=== PATIENT | male | born 1950 | race Caucasian/White ===

== ENCOUNTER 2018-08-16 13:18 | Inpatient (IN) | payer MEDICARE ==
[2018-08-16] MEDS ORDERED: IPRATROPIUM/ALBUTEROL 0.5-2.5 MG/3 ML AMPUL NEB ONE (15:03)
[2018-08-16] MEDS ORDERED: NORMAL SALINE 1000 ML 1,000 ML IV ONE ×2 (15:03→19:49)
--- NOTE | 2018-08-16 15:03 | ER Document Report ---
ED Medical Screen (RME) - General Chief Complaint: Abdominal Pain Stated Complaint: ABDOMINAL PAIN Time Seen by Provider: 08/16/18 14:52 TRAVEL OUTSIDE OF THE [place] IN LAST 30 DAYS: No - Related Data Allergies/Adverse Reactions: No Known Allergies Allergy (Verified 08/16/18 15:02) Past Medical History - Social History Chew tobacco use (# tins/day): No Frequency of alcohol use: None Drug Abuse: None Renal/ Medical History: Denies: Hx Peritoneal Dialysis Physical Exam - Vital signs Vitals: Temp Pulse Resp BP Pulse Ox 98.4 F 118 H 24 H 139/98 H 96 08/16/18 13:44 08/16/18 13:44 08/16/18 13:44 08/16/18 13:44 08/16/18 13:44 Course - Re-evaluation Re-evalutation: 08/16/18 15:02 Cough followed by worsening abdominal pain today seen in urgent care yesterday. I have seen and evaluated this patient, they have undergone a rapid medical screening examination, they will require reevaluation further examination potential further diagnostics and disposition determination by secondary provider. - Vital Signs Vital signs: Temp Pulse Resp BP Pulse Ox 98.4 F 118 H 22 H 151/97 H 95 08/16/18 13:44 08/16/18 13:44 08/16/18 19:01 08/16/18 19:01 08/16/18 19:01 - Laboratory Result Diagrams: 08/16/18 15:56 08/16/18 15:56 Laboratory results interpreted by me: 08/16/18 15:56 BUN 22 H Creatine Kinase 252 H
[2018-08-16 16:07] LABS: ABSOLUTE LYMPHOCYTES (AUTO) 1.8 10^3/uL (0.5-4.7); ABSOLUTE NEUT (AUTO) 7.6 10^3/uL (1.7-8.2); BASOPHILS % (AUTO) 0.1 % (0-2); EOSINOPHILS % (AUTO) 0.2 % (0-6); HEMATOCRIT 44.4 % (37.9-51.0); HEMOGLOBIN 15.4 g/dL (13.5-17.0); LYMPHOCYTES % (AUTO) 17.5 % (13-45); MEAN CORPUSCULAR HEMOGLOBIN 30.2 pg (27.0-33.4); MEAN CORPUSCULAR HGB CONC 34.6 g/dL (32.0-36.0); MEAN CORPUSCULAR VOLUME 87 fl (80-97); MONOCYTES % (AUTO) 9.5 % (3-13); PLATELET COUNT 261 10^3/uL (150-450); RED CELL DISTRIBUTION WIDTH 13.9 % (11.5-14.0); SEGMENTED NEUTROPHILS % (AUTO) 72.7 % (42-78); TOTAL CELLS COUNTED % (AUTO) 100 %; WHITE BLOOD COUNT 10.5 10^3/uL (4.0-10.5)
[2018-08-16 16:23] LABS: ALANINE AMINOTRANSFERASE 23 U/L (21-72); ALBUMIN 4.5 g/dL (3.5-5.0); ALKALINE PHOSPHATASE 60 U/L (38-126); ANION GAP 10 (5-19); ASPARTATE AMINO TRANSFERASE 29 U/L (17-59); BILIRUBIN,DIRECT 0.2 mg/dL (0.0-0.4); BILIRUBIN,TOTAL 0.6 mg/dL (0.2-1.3); BLOOD UREA NITROGEN 22 mg/dL (7-20); CALCIUM 9.4 mg/dL (8.4-10.2); CARBON DIOXIDE 26 mmol/L (22-30); CHLORIDE 103 mmol/L (98-107); CREATINE KINASE 252 U/L (55-170); GLUCOSE 105 mg/dL (75-110); POTASSIUM 4.5 mmol/L (3.6-5.0); SODIUM 139.4 mmol/L (137-145); TOTAL PROTEIN 7.5 g/dL (6.3-8.2)
--- NOTE | 2018-08-16 16:26 | RADIOLOGY REPORT (SQ) ---
EXAM DESCRIPTION: CHEST 2 VIEWS COMPLETED DATE/TIME: 08/16/2018 3:58 pm REASON FOR STUDY: cough COMPARISON: None. EXAM PARAMETERS: NUMBER OF VIEWS: two views TECHNIQUE: Digital Frontal and Lateral radiographic views of the chest acquired. RADIATION DOSE: NA LIMITATIONS: none FINDINGS: LUNGS AND PLEURA: Ill-defined opacification in the right base the hand anteriorly on the l ateral view. MEDIASTINUM AND HILAR STRUCTURES: No masses or contour abnormalities. HEART AND VASCULAR STRUCTURES: Heart normal size. No evidence for failure. BONES: No acute findings. HARDWARE: Loop recorder. OTHER: No other significant finding. IMPRESSION: Limited right middle lobe pneumonia. TECHNICAL DOCUMENTATION: JOB ID: [id number] [email or web address]- All Rights Reserved Reading location - IP/workstation name: [email or web address]
[2018-08-16] MEDS ORDERED: KETOROLAC TROMETHAMINE INJ/PF 30 MG/1 ML SDV IV ONE (19:04)
[2018-08-16] MEDS ORDERED: AMOXICILLIN TRIHYDRATE 500 MG CAPSULE PO ONE (19:05)
[2018-08-16] MEDS ORDERED: LIDOCAINE 5% (700 MG) TRANSDERMAL ADH..PATCH TP ONE (19:05)
[2018-08-16] MEDS ORDERED: ACETAMINOPHEN 325 MG TABLET PO ONE (19:05)
--- NOTE | 2018-08-16 19:10 | ER Document Report ---
ED General - General Chief Complaint: Abdominal Pain Stated Complaint: ABDOMINAL PAIN Time Seen by Provider: 08/16/18 14:52 Notes: Patient is a 68-year-old male with a past medical history of atrial flutter, hypertension presents with 1 week of a persistent cough from 2 days of severe, stabbing, aching pain to his bilateral lower rib spaces and upper abdomen. States the pain is triggered by coughing or moving. Eases off when he is not doing either of these activities. Was seen in urgent care yesterday, chest x- ray was noted to be clear at that time he was diagnosed with a bronchitis. He was started on azithromycin, cough medication mother which he reports have been provided any relief. Denies a history of similar symptoms in the past. No history of COPD or asthma. He is not a smoker. He has not had a fever at home. TRAVEL OUTSIDE OF THE [place] IN LAST 30 DAYS: No - Related Data Allergies/Adverse Reactions: No Known Allergies Allergy (Verified 08/16/18 15:02) Past Medical History - General Information source: Patient - Social History Smoking Status: Former Smoker Chew tobacco use (# tins/day): No Frequency of alcohol use: None Drug Abuse: None Lives with: Spouse/Significant other Family History: Reviewed & Not Pertinent Patient has suicidal ideation: No Patient has homicidal ideation: No - Past Medical History Cardiac Medical History: Reports: Hx Heart Attack, Hx Hypercholesterolemia, Hx Hypertension Renal/ Medical History: Denies: Hx Peritoneal Dialysis Past Surgical History: Reports: Hx Cardiac Catheterization - stent x1, Hx Orthopedic Surgery Review of Systems - Review of Systems Notes: Constitutional: Negative for fever. HENT: Negative for sore throat. Eyes: Negative for visual changes. Cardiovascular: Negative for chest pain. Respiratory: Positive for cough and shortness of breath Gastrointestinal: Positive for upper abdominal pain Genitourinary: Negative for dysuria. Musculoskeletal: Positive for bilateral lower rib pain Skin: Negative for rash. Neurological: Negative for headaches, weakness or numbness. 10 point ROS negative except as marked above and in HPI. Physical Exam - Vital signs Vitals: Temp Pulse Resp BP Pulse Ox 98.4 F 118 H 24 H 139/98 H 96 08/16/18 13:44 08/16/18 13:44 08/16/18 13:44 08/16/18 13:44 08/16/18 13:44 Interpretation: Tachycardic, Tachypneic Notes: PHYSICAL EXAMINATION: GENERAL: Appears uncomfortable but in no acute distress HEAD: Atraumatic, normocephalic. EYES: Pupils equal round and reactive to light, extraocular movements intact, sclera anicteric, conjunctiva are normal. ENT: nares patent, oropharynx clear without exudates. Mild dry mucous membranes. NECK: Normal range of motion, supple without lymphadenopathy LUNGS: Breath sounds clear to auscultation bilaterally and equal. No wheezes rales or rhonchi. HEART: Regular tachycardia without murmurs ABDOMEN: Soft, nontender, normoactive bowel sounds. No guarding, no rebound. No masses appreciated. EXTREMITIES: Normal range of motion, no pitting or edema. No cyanosis. NEUROLOGICAL: No focal neurological deficits. Moves all extremities spontaneously and on command. PSYCH: Normal mood, normal affect. SKIN: Warm, Dry, normal turgor, no rashes or lesions noted. Course - Re-evaluation Re-evalutation: 08/16/18 19:06 Patient presents with 1 week of persistent coughing, mild shortness of breath and diffuse upper abdominal pain with coughing. The patient states that the pain in his upper abdomen is mild unless he coughs or moves and is most severe over his lower rib cages bilaterally had epigastric region. Patient is ready on azithromycin that was started yesterday for a bronchitis. His chest x-ray does show a right middle lobe pneumonia. Azithromycin does not adequately cover for community acquired pneumonia. The patient has also been treated with ketorolac, morphine and acetaminophen with improvement of what appears to be musculoskeletal lower rib and upper abdominal pain. His abdominal exam itself is extremely benign without any areas of focal tenderness, rebound or guarding. The patient did initially have mild tachycardia which was noted to be dramatically worsened after he began having spasms of pain with coughing. Will monitor to see if his tachycardia and hypertension improve after receiving pain control. If these measures do not improve and he remained persistently tachycardic will require hospitalization. 08/16/18 20:42 Patient's tachycardia has not improved despite improvement in pain control and receiving his home dose of metoprolol tartrate 25 mg p.o. Current heart rate is still 121. I therefore have discussed with Dr. Servin and he has accepted the patient for admission. He has been started on levofloxacin. - Vital Signs Vital signs: Temp Pulse Resp BP Pulse Ox 98.3 F 116 H 18 152/82 H 96 08/17/18 03:18 08/17/18 03:18 08/17/18 03:18 08/17/18 03:18 08/17/18 03:18 - Laboratory Result Diagrams: 08/16/18 15:56 08/16/18 15:56 Laboratory results interpreted by me: 08/16/18 15:56 BUN 22 H Creatine Kinase 252 H - Diagnostic Test Radiology reviewed: Image reviewed, Reports reviewed Radiology results interpreted by me: 08/16/18 19:09 Chest x-ray: Right middle lobe pneumonia - EKG Interpretation by Me Additional EKG results interpreted by me: 08/16/18 19:09 Atrial flutter, rate 98. No ST elevations or depressions. QTC is 445. Discharge - Discharge Clinical Impression: Tachycardia, Painful rib Right middle lobe pneumonia Qualifiers: Pneumonia type: due to unspecified organism Qualified Code(s): J18.1 - Lobar pneumonia, unspecified organism Atrial flutter Qualifiers: Atrial flutter type: typical Qualified Code(s): I48.3 - Typical atrial flutter Condition: Fair Disposition: ADMITTED INPATIENT Admitting Provider: Hospitalist Unit Admitted: Telemetry
[2018-08-16] MEDS: MORPHINE SULFATE 10 MG/ML INJ IV PRN (19:45)
[2018-08-16] MEDS ORDERED: METOPROLOL TARTRATE 25 MG TABLET PO ONE (19:59)
[2018-08-16] MEDS ORDERED: LEVALBUTEROL HCL NEB 1.25 MG/3 ML AMPUL NEB PRN (20:47)
[2018-08-16] MEDS ORDERED: IPRATROPIUM BROMIDE 0.02% NEB 0.5 MG/2.5 ML AMPUL NEB PRN (20:47)
[2018-08-16] MEDS: LEVALBUTEROL HCL NEB 1.25 MG/3 ML AMPUL NEB SCH (21:13)
[2018-08-16] MEDS: HEPARIN SOD (PORCINE) 5,000 UNIT/ML 1 ML SYRINGE SUBCUT SCH (21:13)
[2018-08-16] MEDS ORDERED: METOPROLOL TARTRATE PF/INJ 5 MG/5 ML SDV IV ONE (21:30)
--- NOTE | 2018-08-16 22:52 | EKG REPORT ---
SEVERITY:- ABNORMAL ECG - ATRIAL FLUTTER, A-RATE 238 NONSPECIFIC T ABNORMALITIES, ANTERIOR LEADS : Confirmed by: Adelina Clarke MD 16-Aug-2018 22:51:51
[2018-08-17] MEDS: GUAIFENESIN SYRP 200 MG/10 ML UDC PO PRN ×2 (00:43→09:35)
[2018-08-17] MEDS: MORPHINE SULFATE 10 MG/ML INJ IV PRN ×4 (00:57→09:33)
[2018-08-17] MEDS ORDERED: LEVOFLOXACIN 750 MG/D5W RTU 750 MG/150 ML RTUPB IV ONE (01:00)
[2018-08-17] MEDS: LEVALBUTEROL HCL NEB 1.25 MG/3 ML AMPUL NEB SCH ×4 (02:25→19:50)
[2018-08-17] MEDS: IPRATROPIUM BROMIDE 0.02% NEB 0.5 MG/2.5 ML AMPUL NEB SCH ×4 (02:26→19:50)
[2018-08-17] MEDS: METOPROLOL TARTRATE PF/INJ 5 MG/5 ML SDV IV PRN ×2 (04:05→22:48)
--- NOTE | 2018-08-17 05:10 | PDOC H&P ---
History of Present Illness Admission Date/PCP: 08/16/18 21:44 Patient complains of: Shortness of breath and cough History of Present Illness: MADDY CAMPA is a 68 year old male with a past medical history of atrial flutter, mitral valve replacement and hypertension. He presents with 2 days of sharp stabbing right-sided pain preceded by rhinorrhea and postnasal drip prompting him to seek evaluation at urgent care he was diagnosed with bronchitis and placed on azithromycin. He has had no significant improvement prompting evaluation in the emergency room where he is found to be in atrial flutter with uncontrolled rate, rhonchorous with leukocytosis and a right middle lobe infiltrate. He is diagnosed with pneumonia, started on empiric antibiotics and referred to the hospitalist for admission. Patient denies recent hospitalization, antibiotic use or infectious contacts. Past Medical History Cardiac Medical History: Reports: Myocardial Infarction, Hyperlipidema, Hypertension Past Surgical History Past Surgical History: Reports: Cardiac Catheterization - stent x1, Orthopedic Surgery Social History Information Source: Patient, [facility] Records Lives with: Spouse/Significant other Smoking Status: Former Smoker Frequency of Alcohol Use: Heavy Drugs: None - Advance Directive Resuscitation Status: Full Code Family History Family History: Hypertension Parental Family History Reviewed: Yes Children Family History Reviewed: Yes Sibling(s) Family History Reviewed.: Yes Medication/Allergy Allergies/Adverse Reactions: No Known Allergies Allergy (Verified 08/16/18 15:02) Review of Systems Constitutional: ABSENT: chills, fever(s), headache(s), weight gain, weight loss Eyes: ABSENT: visual disturbances Ears: ABSENT: hearing changes Cardiovascular: ABSENT: chest pain, dyspnea on exertion, edema, orthropnea, palpitations Respiratory: ABSENT: cough, hemoptysis Gastrointestinal: ABSENT: abdominal pain, constipation, diarrhea, hematemesis, hematochezia, nausea, vomiting Genitourinary: ABSENT: dysuria, hematuria Musculoskeletal: ABSENT: joint swelling Integumentary: ABSENT: rash, wounds Neurological: ABSENT: abnormal gait, abnormal speech, confusion, dizziness, focal weakness, syncope Psychiatric: ABSENT: anxiety, depression, homidical ideation, suicidal ideation Endocrine: ABSENT: cold intolerance, heat intolerance, polydipsia, polyuria Hematologic/Lymphatic: ABSENT: easy bleeding, easy bruising Physical Exam Vital Signs: Temp Pulse Resp BP Pulse Ox 98.3 F 116 H 18 152/82 H 96 08/17/18 03:18 08/17/18 03:18 08/17/18 03:18 08/17/18 03:18 08/17/18 03:18 Intake & Output 08/15/18 08/16/18 08/17/18 11:59 11:59 11:59 Intake Total 2150 Balance 2150 Weight 102.2 kg General appearance: PRESENT: cooperative, mild distress. ABSENT: disheveled Head exam: PRESENT: atraumatic, normocephalic Eye exam: PRESENT: conjunctiva pink, EOMI, PERRLA. ABSENT: scleral icterus Ear exam: PRESENT: normal external ear exam Mouth exam: PRESENT: moist, tongue midline Neck exam: ABSENT: carotid bruit, JVD, lymphadenopathy, thyromegaly Respiratory exam: PRESENT: accessory muscle use, crackles, decreased breath sounds, retraction, rhonchi, symmetrical, tachypnea Cardiovascular exam: PRESENT: RRR, +S1, +S2, tachycardia. ABSENT: diastolic murmur, rubs, systolic murmur Pulses: PRESENT: normal dorsalis pedis pul Vascular exam: PRESENT: normal capillary refill GI/Abdominal exam: PRESENT: normal bowel sounds, soft. ABSENT: distended, guarding, mass, organolmegaly, rebound, tenderness Rectal exam: PRESENT: deferred Extremities exam: PRESENT: full ROM. ABSENT: calf tenderness, clubbing, pedal edema Neurological exam: PRESENT: alert, awake, oriented to person, oriented to place, oriented to time, oriented to situation, CN II-XII grossly intact. ABSENT: motor sensory deficit Psychiatric exam: PRESENT: appropriate affect, normal mood. ABSENT: homicidal ideation, suicidal ideation Skin exam: PRESENT: dry, intact, warm. ABSENT: cyanosis, rash Results Laboratory Results: 08/16/18 15:56 08/16/18 15:56 08/16/18 08/16/18 15:56 15:56 WBC 10.5 RBC 5.10 Hgb 15.4 Hct 44.4 MCV 87 MCH 30.2 MCHC 34.6 RDW 13.9 Plt Count 261 Seg Neutrophils % 72.7 Lymphocytes % 17.5 Monocytes % 9.5 Eosinophils % 0.2 Basophils % 0.1 Absolute Neutrophils 7.6 Absolute Lymphocytes 1.8 Absolute Monocytes 1.0 Absolute Eosinophils 0.0 Absolute Basophils 0.0 Sodium 139.4 Potassium 4.5 Chloride 103 Carbon Dioxide 26 Anion Gap 10 BUN 22 H Creatinine 0.87 Est GFR ( Amer) > 60 Est GFR (Non-Af Amer) > 60 Glucose 105 Calcium 9.4 Total Bilirubin 0.6 AST 29 ALT 23 Alkaline Phosphatase 60 Total Protein 7.5 Albumin 4.5 08/16/18 08/16/18 15:56 15:56 Creatine Kinase 252 H Troponin I < 0.012 Impressions: Chest X-Ray 08/16/18 15:02 IMPRESSION: Limited right middle lobe pneumonia. Assessment & Plan - Diagnosis (1) Right middle lobe pneumonia Qualifiers: Pneumonia type: due to unspecified organism Qualified Code(s): J18.1 - Lobar pneumonia, unspecified organism Is this a current diagnosis for this admission?: Yes Plan: Maxillary sinusitis evolving to right middle lobe pneumonia, failed outpatient azithromycin, Levaquin initiated. Follow-up CBC and blood culture, Xopenex and ipratropium (2) Pleuritic chest pain Is this a current diagnosis for this admission?: Yes Plan: Secondary to #1, symptomatic management with incentive spirometry (3) Atrial flutter Qualifiers: Atrial flutter type: typical Qualified Code(s): I48.3 - Typical atrial flutter Is this a current diagnosis for this admission?: Yes Plan: Outpatient regiment with IV Lopressor as needed (4) Tachycardia Is this a current diagnosis for this admission?: Yes Plan: Secondary to a flutter, avoid albuterol, Xopenex ordered. As needed Lopressor IV - Time Time Spent: 50 to 70 Minutes - Inpatient Certification Medical Necessity: Need Close Monitoring Due to Risk of Patient Decompensation
[2018-08-17 05:43] LABS: ABSOLUTE LYMPHOCYTES (AUTO) 2.3 10^3/uL (0.5-4.7); ABSOLUTE MONOCYTES (AUTO) 0.8 10^3/uL (0.1-1.4); ABSOLUTE NEUT (AUTO) 3.7 10^3/uL (1.7-8.2); BASOPHILS % (AUTO) 0.3 % (0-2); EOSINOPHILS % (AUTO) 0.2 % (0-6); HEMATOCRIT 38.8 % (37.9-51.0); LYMPHOCYTES % (AUTO) 33.4 % (13-45); MEAN CORPUSCULAR HEMOGLOBIN 30.2 pg (27.0-33.4); MEAN CORPUSCULAR HGB CONC 34.3 g/dL (32.0-36.0); MEAN CORPUSCULAR VOLUME 88 fl (80-97); MONOCYTES % (AUTO) 12.1 % (3-13); PLATELET COUNT 197 10^3/uL (150-450); RED BLOOD COUNT 4.41 10^6/uL (4.35-5.55); RED CELL DISTRIBUTION WIDTH 13.5 % (11.5-14.0); TOTAL CELLS COUNTED % (AUTO) 100 %; WHITE BLOOD COUNT 6.9 10^3/uL (4.0-10.5)
[2018-08-17 06:09] LABS: ANION GAP 8 (5-19); BLOOD UREA NITROGEN 23 mg/dL (7-20); CALCIUM 8.6 mg/dL (8.4-10.2); CARBON DIOXIDE 23 mmol/L (22-30); CHLORIDE 108 mmol/L (98-107); GLUCOSE 96 mg/dL (75-110); POTASSIUM 5.1 mmol/L (3.6-5.0); SODIUM 139.3 mmol/L (137-145)
[2018-08-17] MEDS: HEPARIN SOD (PORCINE) 5,000 UNIT/ML 1 ML SYRINGE SUBCUT SCH ×2 (06:29→14:36)
[2018-08-17 06:58] LABS: HEMOGLOBIN 13.3 g/dL (13.5-17.0)
[2018-08-17] MEDS ORDERED: METOPROLOL TARTRATE 25 MG TABLET ONE ×2 (08:47→22:42)
[2018-08-17] MEDS ORDERED: METOPROLOL TARTRATE 25 MG TABLET PO SCH ×2 (10:00→17:30)
[2018-08-17] MEDS ORDERED: LEVOFLOXACIN 750 MG/D5W RTU 750 MG/150 ML RTUPB IV SCH ×2 (10:00→22:00)
[2018-08-17] MEDS ORDERED: MORPHINE SULFATE 10 MG/ML INJ IV PRN (11:36)
[2018-08-17] MEDS: ACETAMINOPHEN 325 MG TABLET PO PRN ×2 (12:06→21:12)
[2018-08-17] MEDS ORDERED: DILTIAZEM HCL 60 MG TABLET PO ONE (12:30)
[2018-08-17] MEDS: RIVAROXABAN 10 MG TABLET PO SCH (15:27)
--- NOTE | 2018-08-17 17:04 | PDOC PROGRESS REPORT ---
Subjective Progress Note for:: 08/17/18 Subjective:: This is a 68 yr old male with a PMH of atrial flutter on Xarelto, history of CAD-with prior stenting, mitral valve replacement and hypertension who presented with respiratory complaints and was found to have right middle lobe pneumonia. He was also noted to be in Aflutter with RVR. No acute event overnight. However, his heart continues to run in the 120s on 25 mg of Lopressor. This morning, he says he feel better and his breathing feels better. He denies chest pain or dizziness. Reason For Visit: PNEUOMONIA Physical Exam Vital Signs: Temp Pulse Resp BP Pulse Ox 97.8 F 116 H 18 126/88 H 95 08/17/18 13:00 08/17/18 14:00 08/17/18 14:00 08/17/18 13:00 08/17/18 14:00 Intake & Output 08/16/18 08/17/18 08/18/18 06:59 06:59 06:59 Intake Total 2150 Balance 2150 Weight 225 lb 4.999 oz General appearance: PRESENT: no acute distress, well-developed, well-nourished Head exam: PRESENT: atraumatic, normocephalic Eye exam: PRESENT: conjunctiva pink, EOMI, PERRLA. ABSENT: scleral icterus Ear exam: PRESENT: normal external ear exam Mouth exam: PRESENT: moist, tongue midline Neck exam: ABSENT: carotid bruit, JVD, lymphadenopathy, thyromegaly Respiratory exam: PRESENT: rales - on the right base, rhonchi. ABSENT: wheezes Rectal exam: PRESENT: deferred Neurological exam: PRESENT: alert, awake, oriented to person, oriented to place, oriented to time, oriented to situation, CN II-XII grossly intact. ABSENT: motor sensory deficit Results Laboratory Results: 08/17/18 05:02 08/17/18 05:02 08/17/18 08/17/18 05:02 05:02 WBC 6.9 RBC 4.41 Hgb 13.3 L D Hct 38.8 MCV 88 MCH 30.2 MCHC 34.3 RDW 13.5 Plt Count 197 Seg Neutrophils % 54.0 Lymphocytes % 33.4 Monocytes % 12.1 Eosinophils % 0.2 Basophils % 0.3 Absolute Neutrophils 3.7 Absolute Lymphocytes 2.3 Absolute Monocytes 0.8 Absolute Eosinophils 0.0 Absolute Basophils 0.0 Sodium 139.3 Potassium 5.1 H Chloride 108 H Carbon Dioxide 23 Anion Gap 8 BUN 23 H Creatinine 0.83 Est GFR ( Amer) > 60 Est GFR (Non-Af Amer) > 60 Glucose 96 Calcium 8.6 08/16/18 08/16/18 15:56 15:56 Creatine Kinase 252 H Troponin I < 0.012 Impressions: Chest X-Ray 08/16/18 15:02 IMPRESSION: Limited right middle lobe pneumonia. Assessment & Plan - Diagnosis (1) Right middle lobe pneumonia Qualifiers: Pneumonia type: due to unspecified organism Qualified Code(s): J18.1 - Lobar pneumonia, unspecified organism Is this a current diagnosis for this admission?: Yes Plan: Continue levofloxacin. Sputum culture ordered. (2) Atrial flutter Qualifiers: Atrial flutter type: typical Qualified Code(s): I48.3 - Typical atrial flutter Is this a current diagnosis for this admission?: Yes Plan: Xarelto resumed. He was given one dose oral cardizem and HR improved down to 90. Will increase lopressor to 50 mg bid. (3) CAD (coronary artery disease) Is this a current diagnosis for this admission?: Yes Plan: Stable. Resume aspirin and statin. - Time Time Spent with patient: 25-34 minutes
[2018-08-17] MEDS ORDERED: ASPIRIN 81 MG TABLET, ENT COATED PO ONE (18:00)
[2018-08-17] MEDS ORDERED: ATORVASTATIN CALCIUM 20 MG TABLET PO SCH (22:00)
[2018-08-17] MEDS ORDERED: METOPROLOL TARTRATE 25 MG TABLET PO ONE ×2 (22:00→23:30)
[2018-08-18] MEDS: ACETAMINOPHEN 325 MG TABLET PO PRN ×2 (01:23→09:09)
[2018-08-18] MEDS: IPRATROPIUM BROMIDE 0.02% NEB 0.5 MG/2.5 ML AMPUL NEB SCH ×2 (01:56→08:42)
[2018-08-18] MEDS: LEVALBUTEROL HCL NEB 1.25 MG/3 ML AMPUL NEB SCH ×2 (01:56→08:42)
[2018-08-18] MEDS: RIVAROXABAN 10 MG TABLET PO SCH (09:10)
[2018-08-18] MEDS ORDERED: LISINOPRIL 10 MG TABLET PO SCH (10:00)
[2018-08-18] MEDS ORDERED: ASPIRIN 81 MG TABLET, ENT COATED PO SCH (10:00)
[2018-08-18] MEDS ORDERED: METOPROLOL TARTRATE 50 MG TABLET PO SCH (10:00)
[2018-08-18] MEDS ORDERED: DOCUSATE SODIUM 100 MG CAPSULE PO SCH (11:00)
[2018-08-18 13:17] VITALS: BP 126/88
--- NOTE | 2018-08-22 16:54 | PDOC DISCHARGE SUMMARY ---
General - Admit/Disc Date/PCP Admission Date/Primary Care Provider: 08/16/18 21:44 Discharge Date: 08/18/18 - Discharge Diagnosis (1) Right middle lobe pneumonia Is this a current diagnosis for this admission?: Yes (2) Atrial flutter Is this a current diagnosis for this admission?: Yes (3) CAD (coronary artery disease) Is this a current diagnosis for this admission?: Yes - Additional Information Resuscitation Status: Full Code Discharge Activity: Activity As Tolerated, Balance Activity w/Rest, Slowly Increase Activity Prescriptions: Levofloxacin [Levaquin 750 mg Tablet] 750 mg PO DAILY #5 tab Metoprolol Tartrate [Lopressor 50 mg Tablet] 50 mg PO Q12 #60 tablet Home Medications: Aspirin [Adult Aspirin] 81 mg PO DAILY 08/17/18 Atorvastatin Calcium [Lipitor 20 mg Tablet] 20 mg PO QHS 08/17/18 Lisinopril [Prinivil] 10 mg PO DAILY 08/17/18 Multivitamin [Daily Multiple Vitamin] 1 each PO DAILY 08/17/18 [place]-3 Fatty Acids/Fish Oil [[place] 3 Fish Oil Softgel] 1 each PO DAILY 08/17/18 Rivaroxaban [Xarelto] 20 mg PO DAILY 08/17/18 Levofloxacin [Levaquin 750 mg Tablet] 750 mg PO DAILY #5 tab 08/18/18 Metoprolol Tartrate [Lopressor 50 mg Tablet] 50 mg PO Q12 #60 tablet 08/18/18 History of Present Illness History of Present Illness: Admitting hospitalist's H&P: MADDY CAMPA is a 68 year old male with a past medical history of atrial flutter, mitral valve replacement and hypertension. He presents with 2 days of sharp sta bbing right-sided pain preceded by rhinorrhea and postnasal drip prompting him to seek evaluation at urgent care he was diagnosed with bronchitis and placed on azithromycin. He has had no significant improvement prompting evaluation in the emergency room where he is found to be in atrial flutter with uncontrolled rate, rhonchorous with leukocytosis and a right middle lobe infiltrate. He is diagn osed with pneumonia, started on empiric antibiotics and referred to the hospitalist for admission. Patient denies recent hospitalization, antibiotic use or infectious contacts. Hospital Course Hospital Course: This is a 68 yr old male who recently moved here in [place] with a PMH of atrial flutter on Xarelto, history of CAD-with prior stenting, mitral valve annuloplasty (has a Petar ring) and hypertension who presented with respiratory complaints and was found to have right middle lobe pneumonia. He was also noted to be in Aflutter with RVR. He was started on antibiotics. He had significant improvement and was back to his baseline on day of discharge. His lopressor was increased and his heart rate improved down to the 80s. He was given Dr. Cerda's number to ff-up with his Aflutter. He will be given 5 more days of Levaquin. Physical Exam Vital Signs: Temp Pulse Resp BP Pulse Ox 98.5 F 94 17 126/88 H 97 08/18/18 13:12 08/18/18 13:12 08/18/18 13:12 08/18/18 13:12 08/18/18 13:12 Intake & Output 08/17/18 08/18/18 08/19/18 06:59 06:59 06:59 Intake Total 2150 1116 Balance 2150 1116 Weight 225 lb 4.999 oz 230 lb 9.656 oz General appearance: PRESENT: no acute distress, well-developed, well-nourished Head exam: PRESENT: atraumatic, normocephalic Eye exam: PRESENT: conjunctiva pink, EOMI, PERRLA. ABSENT: scleral icterus Ear exam: PRESENT: normal external ear exam Mouth exam: PRESENT: moist, tongue midline Neck exam: ABSENT: carotid bruit, JVD, lymphadenopathy, thyromegaly Respiratory exam: PRESENT: rhonchi. ABSENT: rales, wheezes Cardiovascular exam: PRESENT: irregular rhythm, systolic murmur. ABSENT: rubs Pulses: PRESENT: normal dorsalis pedis pul GI/Abdominal exam: PRESENT: normal bowel sounds, soft. ABSENT: distended, guarding, mass, organolmegaly, rebound, tenderness Rectal exam: PRESENT: deferred Extremities exam: PRESENT: full ROM. ABSENT: calf tenderness, clubbing, pedal edema Neurological exam: PRESENT: alert, awake, oriented to person, oriented to place, oriented to time, oriented to situation, CN II-XII grossly intact. ABSENT: motor sensory deficit Results Laboratory Results: 08/17/18 05:02 08/17/18 05:02 08/17/18 20:30 Sputum Gram Stain - Final 08/17/18 20:30 Sputum Sputum Culture - Final 08/16/18 08/16/18 15:56 15:56 Creatine Kinase 252 H Troponin I < 0.012 Impressions: Chest X-Ray 08/16/18 15:02 IMPRESSION: Limited right middle lobe pneumonia. Qualifiers - * PATIENT BEING DISCHARGED WITH ANY OF THE FOLLOWING DIAGNOSIS: No
== END 2018-08-18 14:54 | disposition home or self-care (01) | DRG 194 ==
LOC: ER 13:18 → EH 21:44 → 4S 23:35
PROVIDERS: ADMIT Internal Medicine; ATTEND Internal Medicine
DX: J18.1 Lobar pneumonia, unspecified organism (principal); I48.3 Typical atrial flutter; I10 Essential (primary) hypertension; E78.5 Hyperlipidemia, unspecified; J32.0 Chronic maxillary sinusitis; I25.10 Atherosclerotic heart disease of native coronary artery without angina pectoris; I25.2 Old myocardial infarction; Z79.01 Long term (current) use of anticoagulants; Z79.82 Long term (current) use of aspirin; Z79.52 Long term (current) use of systemic steroids; Z79.899 Other long term (current) drug therapy; Z87.891 Personal history of nicotine dependence
CPT/HCPCS: 36415; 71046; 80048; 80053; 82550; 84484; 85025; 87070; 87205; 93005; 93010; 94640; 94799; 96361; 96372; 96374; 96375; 99285; J1644; J1885; J1956; J2270; J3490; J7030; J7620

== ENCOUNTER → 2018-09-03 | Outpatient (CLI) | payer MEDICARE ==
--- NOTE | 2018-09-03 10:26 | RADIOLOGY REPORT (SQ) ---
EXAM DESCRIPTION: Or/19 CHEST 2 VIEWS COMPLETED DATE/TIME: 09/03/2018 10:09 am REASON FOR STUDY: PNEUMONIA COMPARISON: 08/16/2018 EXAM PARAMETERS: NUMBER OF VIEWS: two views TECHNIQUE: Digital Frontal and Lateral radiographic views of the chest acquired. RADIATION DOSE: NA LIMITATIONS: none FINDINGS: LUNGS AND PLEURA: Improved right middle lobe aeration with minimal residual streaky opacit ies. Small residual right pleural effusion. Unremarkable left hemithorax. No pneumothorax. MEDIASTINUM AND HILAR STRUCTURES: No masses or contour abnormalities. HEART AND VASCULAR STRUCTURES: Normal cardiac silhouette size. Atherosclerotic aorta. BONES: No acute findings. HARDWARE: Partially visualized anterior cervical fusion hardware. Median sternotomy wires. Loop rec order overlies left chest. OTHER: No other significant finding. IMPRESSION: Improved right middle lobe airspace disease with minimal residual streaky opacities and small right pleural effusion. TECHNICAL DOCUMENTATION: JOB ID: [id number] [employer]- All Rights Reserved Reading location - IP/workstation name: [email or web address]
== END ==
LOC: RAD 09:53
PROVIDERS: ATTEND Family Medicine
DX: J18.9 Pneumonia, unspecified organism (principal)
CPT/HCPCS: 71046